=== PATIENT | female | born 1955 | race Caucasian/White ===

== ENCOUNTER 2024-11-19 14:02 | Emergency (ER) | payer OTHER ==
[2024-11-19 14:22] VITALS: BP 131/83; PULSE 87; RESP 20; TEMP 98.4; BMI 22.6
== END 2024-11-19 17:04 | disposition home or self-care (01) ==
LOC: FER 14:02
PROC: 0HQ1XZZ Repair Face Skin, External Approach (ICD-10-PCS; principal; 2024-11-19)
DX: S01.81XA Laceration without foreign body of other part of head, initial encounter (principal); S63.91XA Sprain of unspecified part of right wrist and hand, initial encounter; R51.9 Headache, unspecified; W01.198A Fall on same level from slipping, tripping and stumbling with subsequent striking against other object, initial encounter
CPT/HCPCS: 70450-TC; 73130-TC-RT-FY; 99284-25

== ENCOUNTER 2024-11-26 10:11 | Emergency (ER) | payer OTHER ==
[2024-11-26 10:19] VITALS: BMI 23.0
[2024-11-26 10:20] VITALS: BP 127/73; PULSE 68; RESP 18; TEMP 97.7
== END 2024-11-26 10:51 | disposition home or self-care (01) ==
LOC: FER 10:11
DX: Z48.02 Encounter for removal of sutures (principal)
CPT/HCPCS: 99281-25